=== PATIENT | female | born 1975 | race Native Hawaiian/Other Pacific Islander ===

== ENCOUNTER 2017-06-18 06:41 | Day surgery (SDC) | payer OTHER ==
[2017-06-18 07:15] LABS: SQUAMOUS EPITHIAL 15 /hpf (0-5); URINE BILIRUBIN NEGATIVE (NEGATIVE); URINE BLOOD NEGATIVE (NEGATIVE); URINE CLARITY Hazy (Clear); URINE COLOR Yellow (YELLOW); URINE GLUCOSE (UA) NORMAL (Normal); URINE LEUKOCYTE ESTERASE TRACE Leu/uL (Negative); URINE PROTEIN NEGATIVE (NEGATIVE); URINE UROBILINOGEN NORMAL mg/dL (0.2-1.0)
[2017-06-18 07:16] LABS: HCG,QUALITATIVE URINE POSITIVE (NEGATIVE)
[2017-06-18 07:47] LABS: BASO % 0.2 % (0.0-2.0); EOS # 0.2 K/uL (0.0-0.7); EOS % 4.2 % (0.0-4.0); HEMOGLOBIN 12.6 g/dL (11.0-16.0); LYMPH # 1.5 K/uL (1.0-4.3); LYMPH % 29.4 % (20.0-40.0); MEAN CELL VOLUME 85.1 fL (81.0-99.0); MEAN CORPUSCULAR HEMOGLOBIN 29.2 pg (27.0-31.0); MEAN CORPUSCULAR HGB CONC 34.3 g/dL (33.0-37.0); MEAN PLATELET VOLUME 7.8 fL (7.2-11.7); MONO # 0.4 K/uL (0.0-0.8); NEUT # 2.9 K/uL (1.8-7.0); NEUT % 58.2 % (50.0-75.0); RBC 4.3 Mil/uL (3.80-5.20); RED CELL DISTRIBUTION WIDTH 13.8 % (11.5-14.5)
[2017-06-18 07:53] LABS: PROTHROMBIN TIME 11.7 SECONDS (9.7-12.2)
--- NOTE | 2017-06-18 08:02 | C.PDOC ---
History Of Present Illness 42 year old female presents to ED for evaluation and needs D&C by OB Dr Diane Can. Patient states she had miscarriage 2 weeks ago and has been bleeding since. She had US on Thursday 06/15 and was told to come to ER today. Currently patient reports mild bleeding and denies any pain, dizziness, headache or weakness. Time Seen by Provider: 06/18/17 07:07 Chief Complaint (Nursing): Medical Clearance History Per: Patient History/Exam Limitations: no limitations Current Symptoms Are (Timing): Still Present Severity: Moderate Past Medical History Reviewed: Historical Data, Nursing Documentation, Vital Signs Vital Signs: Last Vital Signs Temp 98.1 F 06/18/17 06:50 Pulse 79 06/18/17 06:50 Resp 18 06/18/17 06:50 BP 131/81 06/18/17 06:50 Pulse Ox 100 06/18/17 10:55 Family History: States: No Known Family Hx - Social History Hx Alcohol Use: No Hx Substance Use: No - Immunization History Hx Tetanus Toxoid Vaccination: No Hx Influenza Vaccination: Yes Hx Pneumococcal Vaccination: No Review Of Systems Constitutional: Negative for: Fever, Chills Gastrointestinal: Negative for: Vomiting, Abdominal Pain Genitourinary: Positive for: Vaginal Bleeding. Negative for: Dysuria, Vaginal Discharge, Pelvic Pain Neurological: Negative for: Weakness, Headache, Dizziness Physical Exam - Physical Exam Appears: Non-toxic, No Acute Distress Skin: Normal Color, Warm, Dry, No Rash Head: Normacephalic Eye(s): bilateral: PERRL Nose: Normal Oral Mucosa: Moist Lips: Normal Appearing Neck: Normal ROM Chest: Symmetrical Cardiovascular: Rhythm Regular, No Murmur Respiratory: Normal Breath Sounds, No Accessory Muscle Use Gastrointestinal/Abdominal: Soft, No Tenderness Extremity: Normal ROM Neurological/Psych: Oriented x3, Normal Speech ED Course And Treatment - Laboratory Results Result Diagrams: 06/18/17 07:39 06/18/17 07:39 Lab Interpretation: No Acute Changes ECG: Interpreted By Me, Viewed By Me ECG Rhythm: Sinus Rhythm ECG Interpretation: No Acute Changes Rate From EC O2 Sat by Pulse Oximetry: 100 (RA) Pulse Ox Interpretation: Normal - CT Scan/US transvaginal Other Rad Studies (CT/US): Read By Radiologist, Radiology Report Reviewed CT/US Interpretation: Accession No. : [id number]. Patient Name / ID : ALO HEALY / [id number]. Exam Date : 06/18/2017 09:38:47 ( Approved ). Study Comment : Sex / Age : F / 42Y. Creator : Asael Kessler MD. Dictator : Asael Kessler MD. Rail Car Repair Carman : Jr. Systems Administrator : Asael Kessler MD. Approver2 : Report Date : 06/18/2017 10:02:49. My Comment : . Pelvic ultrasound. History: Vaginal bleeding. Comparison: None available. Technique: Real-time sonography was performed through the pelvis utilizing transvaginal technique. Findings: Uterus: 7.9 x 4.3 x 5.0 centimeters. Heterogeneous echotexture. Retroverted. Fundal submucosal probable heterogeneous fibroid lesion measuring 2.4 x 1.8 x 2.6 centimeters. Endometrium measures 3.7 millimeters, within normal limits. Small to moderate amount of free fluid within the pelvic cul-de-sac. Right ovary: 3.1 x 1.8 x 2.8 centimeters. Normal flow. Left ovary: 3.6 x 2.1 x 2.9 centimeters. Normal flow. Small hypoechoic cyst/follicle measuring up to 1.4 x 1.3 centimeters. Beta HCG level of 26.8. Clinical correlation. Impression: 1. Retroverted uterus with a heterogeneous echotexture. 2. Small to moderate amount of free fluid noted within the pelvic cul-de-sac. 3. Probable heterogeneous fibroid lesion in the fundal submucosal region of the uterus measuring up to 2.6 centimeters. Interval followup ultrasound is recommended if clinically indicated. Medical Decision Making Medical Decision Making: Patient with 2 weeks of vaginal bleeding s.p spontaneous . [address] Diane Can, [facility] and [facility]. Orders placed for labs and US. Prior records reviewed US shows endometrium measures 10mm in diameter. 2.4 cm intramural anterior fundal fibroid and 2.1 cm simple cyst in the left ovary. 1000 US shows Small to moderate amount of free fluid noted within the pelvic cul -de-sac. Probable heterogeneous fibroid lesion in the fundal submucosal region of the uterus measuring up to 2.[address] Diane Can who is in OR performing 1055 Dr Diane Can calls back ED and will come to evaluate patient 1105 Dr Diane Can states admit to [facility] and will take patient to OR for D&C Disposition - Disposition Disposition: HOSPITALIZED Disposition Time: 11:10 Condition: STABLE - POA Present On Arrival: None - Clinical Impression Clinical Impression: Abnormal vaginal bleeding - Scribe Statement The provider has reviewed the documentation as recorded by the Scribe (Farshad Dewey) All medical record entries made by the Scribe were at my direction and personally dictated by me. I have reviewed the chart and agree that the record accurately reflects my personal performance of the history, physical exam, medical decision making, and the department course for this patient. I have also personally directed, reviewed, and agree with the discharge instructions and disposition. Decision To Admit - Pt Status Changed To: Hospital Disposition Of: [facility]- Endo,OR,Cath,IR - . Bed Request Type: Same Day Surgery Admitting Physician: Margaret Can Patient Diagnosis: Abnormal vaginal bleeding
[2017-06-18 08:15] LABS: ALB/GLOB RATIO 1.2 (1.0-2.1); ALBUMIN 4.3 g/dL (3.5-5.0); ALT/SGPT 24 U/L (9-52); AST/SGOT 32 U/L (14-36); BLOOD UREA NITROGEN 10 mg/dL (7-17); GFR AFRICAN-AMERICAN > 60; GFR NON-AFRICAN AMERICAN > 60
--- NOTE | 2017-06-18 10:04 | US ---
Pelvic ultrasound History: Vaginal bleeding. Comparison: None available. Technique: Real-time sonography was performed through the pelvis utilizing transvaginal technique. Findings: Uterus: 7.9 x 4.3 x 5.0 centimeters. Heterogeneous echotexture. Retroverted. Fundal submucosal probable heterogeneous fibroid lesion measuring 2.4 x 1.8 x 2.6 centimeters. Endometrium measures 3.7 millimeters, within normal limits. Small to moderate amount of free fluid within the pelvic cul-de-sac. Right ovary: 3.1 x 1.8 x 2.8 centimeters. Normal flow. Left ovary: 3.6 x 2.1 x 2.9 centimeters. Normal flow. Small hypoechoic cyst/follicle measuring up to 1.4 x 1.3 centimeters. Beta HCG level of 26.8. Clinical correlation. Impression: 1. Retroverted uterus with a heterogeneous echotexture. 2. Small to moderate amount of free fluid noted within the pelvic cul-de-sac. 3. Probable heterogeneous fibroid lesion in the fundal submucosal region of the uterus measuring up to 2.6 centimeters. Interval followup ultrasound is recommended if clinically indicated.
--- NOTE | 2017-06-18 11:25 | CP.PCM.HP ---
History of Present Illness - History of Present Illness History of Present Illness: 42 y/o with incomplete with prlonged bleeidgn x 2-3 weeks. Pt opted for conservative managmetn intiallly with trending of beta hcg adn us however last week beta increased divina was sadivesd on medical vs surgical managmnet. pt had heavy prolonteg bleedign and underenwt medical mangment with contined bleeing. Pt preorts her bleedign is on and offs, passing large clots, not using more than 2 ads/ hour but rpeorts feelign tired and not able to focus for long period of time due ot frequent pad changes. pt cassy any dizzyness, cp , sob, boewl ro bladder copliants. UPon recent evlauatin pt had beta trendign dwon to 100 on and today in ER 26 but still reprots heavy bleeding. pt had an US signiciant for 2.6cm submcuosal myoma. Pt also reports pain from crampign that comes adn goes and varies intienstiy adn severity currently 08/28, soemtiesm alelviated with otc pain medicaiton. OB: NSNVD x [address] MIXER OPERATOR: dneis hx of merrick castelan, sti, ovarian cyst, +firoids PMHY: Dneis PSH: denies MEDS: none NKDA SHX: negative etoh/tobacc/drugs Present on Admission - Present on Admission Any Indicators Present on Admission: No Review of Systems - Review of Systems Systems not reviewed;Unavailable: Acuity of Condition - Constitutional Constitutional: As Per HPI, Fatigue - Cardiovascular Cardiovascular: absent: As Per HPI, Acrocyanosis, Chest Pain, Chest Pain at Rest , Chest Pain with Activity, Claudication, Diaphoresis, Dyspnea, Dyspnea on Exertion, Edema, Irregular Heart Rhythm, Pain Radiating to Arm/Neck/Jaw, Leg Edema, Leg Ulcers, Lightheadedness, Orthopnea, Palpitations, Paroxysmal Nocturnal Dyspnea, Pedal Edema, Radiating Pain, Rapid Heart Rate, Slow Heart Rate, Syncope, Other - Respiratory Respiratory: absent: As Per HPI, Cough, Dyspnea, Hemoptysis, Dyspnea on Exertion , Wheezing, Snoring, Stridor, Pain on Inspiration, Chest Congestion, Excessive Mucous Production, Change in Mucous Color, Pain with Coughing, Other - Gastrointestinal Gastrointestinal: Abdominal Pain. absent: As Per HPI, Belching, Bloating, Change in Bowel Habits, Change in Stool Character, Coffee Ground Emesis, Constipation, Cramping, Diarrhea, Dyspepsia, Dysphagia, Early Satiety, Excessive Flatus, Fecal Incontinence, Heartburn, Hematemesis, Hematochezia, Loose Stools, Melena, Nausea, Odynophagia, Temesmus, Vomiting, Other - Genitourinary Genitourinary: absent: As Per HPI, Change in Urinary Stream, Difficulty Urinating, Dysuria, Flank Pain, Hematuria, Pyuria, Nocturia, Urinary Incontinence, Urinary Frequency, Urinary Hesitance, Urinary Urgency, Voiding Freq/Small Amts, Freq UTI, Hx Renal/Bladder Calculi, Hx /Renal Surgery, Bladder Distension, Other - Reproductive: Female Reproductive:Female: As Per HPI, Cycle Variable, Heavy Menses - Menstruation Menstruation: As Per HPI - Musculoskeletal Musculoskeletal: As Per HPI - Integumentary Integumentary: absent: As Per HPI, Acne, Alopecia, Bleeding Lesions, Change in Hair, Change in Nails, Change in Pigmentation, Changing Lesions, Dry Skin, Erythema, Furuncle, Hirsutism, Lesions, New Lesions, Non-Healing Lesions, Photosensitivity, Pruritus, Rash, Skin Pain, Skin Ulcer, Sores, Striae, Swelling , Unusual Bruising, Wounds, Jaundice, Other - Neurological Neurological: absent: As Per HPI, Abnormal Gait, Abnormal Hearing, Abnormal Movements, Abnormal Speech, Behavioral Changes, Burning Sensations, Confusion, Convulsions, Disequilibrium, Dizziness, Numbness, Focal Weakness, Frequent Falls , Headaches, Lack of Coordination, Loss of Vision, Memory Loss, Paresthesias, Radicular Pain, Restless Legs, Sensory Deficit, Syncope, Tingling, Tremor, Vertigo, Weakness, Other Visual Disturbances, Other - Psychiatric Psychiatric: absent: As Per HPI, Abnormal Sleep Pattern, Anhedonia, Anxiety, Auditory Hallucinations, Behavioral Changes, Change in Appetite, Change in Libido, Confusion, Depression, Difficulty Concentrating, Hallucinations, Homicidal Ideation, Hopelessness, Irritability, Memory Loss, Mood Swings, Panic Attacks, Paranoia, Suicidal Ideation, Visual Hallucinations, Tactile Hallucinations, Other - Hematologic/Lymphatic Hematologic: absent: As Per HPI, Easy Bleeding, Easy Bruising, Lymphadenopathy, Other Past Patient History - Past Social History Smoking Status: Never Smoked Chewing Tobacco Use: No Cigar Use: No - CARDIAC Hx Cardiac Disorders: No - PULMONARY Hx Respiratory Disorders: No - NEUROLOGICAL Hx Neurological Disorder: No - HEENT Hx HEENT Problems: No - RENAL Hx Chronic Kidney Disease: No - ENDOCRINE/METABOLIC Hx Endocrine Disorders: No - HEMATOLOGICAL/ONCOLOGICAL Hx Blood Disorders: No - INTEGUMENTARY Hx Dermatological Problems: No - MUSCULOSKELETAL/RHEUMATOLOGICAL Hx Musculoskeletal Disorders: No - GASTROINTESTINAL Hx Gastrointestinal Disorders: No - GENITOURINARY/GYNECOLOGICAL Hx Genitourinary Disorders: No - PSYCHIATRIC Hx Substance Use: No - SURGICAL HISTORY Hx Surgeries: No - ANESTHESIA Hx Anesthesia: No Meds Allergies/Adverse Reactions: Allergies Allergy/AdvReac Type Severity Reaction Status Date / Time No Known Allergies Allergy Verified 06/18/17 06:53 Physical Exam - Constitutional Appears: Well, No Acute Distress - Head Exam Head Exam: ATRAUMATIC, NORMAL INSPECTION - Eye Exam Eye Exam: Normal appearance, PERRL Pupil Exam: NORMAL ACCOMODATION - ENT Exam ENT Exam: Mucous Membranes Moist, Normal Exam - Respiratory Exam Respiratory Exam: Clear to Auscultation Bilateral, NORMAL BREATHING PATTERN - Cardiovascular Exam Cardiovascular Exam: REGULAR RHYTHM, +S1, +S2 - GI/Abdominal Exam GI & Abdominal Exam: Normal Bowel Sounds, Soft, Tenderness Additional comments: no guarding, no reboudn tendnere, no rigidty - Exam Additional comments: Extneral gentialia; no gross abnormlaites Vagina: dark red blood, small clots cervix; non tende rUteurs; non tender 10 weeks adnexa; non tender b/l, no mona appacited b/l anus/peirenum: gorslly nromal Results - Vital Signs Recent Vital Signs: Last Vital Signs Temp 98.1 F 06/18/17 06:50 Pulse 79 06/18/17 06:50 Resp 18 06/18/17 06:50 BP 131/81 06/18/17 06:50 Pulse Ox 100 06/18/17 11:11 - Labs Result Diagrams: 06/18/17 07:39 06/18/17 07:39 Labs: Laboratory Results - last 24 hr 06/18/17 06/18/17 06/18/17 06:55 07:39 07:39 WBC 5.0 RBC 4.30 Hgb 12.6 Hct 36.6 MCV 85.1 MCH 29.2 MCHC 34.3 RDW 13.8 Plt Count 276 MPV 7.8 Neut % (Auto) 58.2 Lymph % (Auto) 29.4 [place] % (Auto) 8.0 Eos % (Auto) 4.2 H Baso % (Auto) 0.2 Neut # (Auto) 2.9 Lymph # (Auto) 1.5 [place] # (Auto) 0.4 Eos # (Auto) 0.2 Baso # (Auto) 0.0 PT 11.7 INR 1.0 APTT 29 Sodium Potassium Chloride Carbon Dioxide Anion Gap BUN Creatinine Est GFR ( Amer) Est GFR (Non-Af Amer) Random Glucose Calcium Total Bilirubin AST ALT Alkaline Phosphatase Total Protein Albumin Globulin Albumin/Globulin Ratio Beta HCG, Quant Urine Color Yellow Urine Clarity Hazy Urine pH 5.0 Ur Specific [place] 1.021 Urine Protein Negative Urine Glucose (UA) Normal Urine Ketones Negative Urine Blood Negative Urine Nitrate Negative Urine Bilirubin Negative Urine Urobilinogen Normal Ur Leukocyte Esterase Trace Urine WBC (Auto) 2 Urine RBC (Auto) 1 Ur Squamous Epith Cells 15 H Urine HCG, Qual Positive 06/18/17 07:39 WBC RBC Hgb Hct MCV MCH MCHC RDW Plt Count MPV Neut % (Auto) Lymph % (Auto) [place] % (Auto) Eos % (Auto) Baso % (Auto) Neut # (Auto) Lymph # (Auto) [place] # (Auto) Eos # (Auto) Baso # (Auto) PT INR APTT Sodium 143 Potassium 4.1 Chloride 103 Carbon Dioxide 26 Anion Gap 17 BUN 10 Creatinine 0.7 Est GFR ( Amer) > 60 Est GFR (Non-Af Amer) > 60 Random Glucose 100 Calcium 9.0 Total Bilirubin 0.8 AST 32 ALT 24 Alkaline Phosphatase 33 L Total Protein 8.1 Albumin 4.3 Globulin 3.8 Albumin/Globulin Ratio 1.2 Beta HCG, Quant 26.80 Urine Color Urine Clarity Urine pH Ur Specific [place] Urine Protein Urine Glucose (UA) Urine Ketones Urine Blood Urine Nitrate Urine Bilirubin Urine Urobilinogen Ur Leukocyte Esterase Urine WBC (Auto) Urine RBC (Auto) Ur Squamous Epith Cells Urine HCG, Qual - Imaging and Cardiology US - abdomen Status: Report reviewed by me Assessment & Plan (1) Abnormal vaginal bleeding Assessment and Plan: 42 y/o s/p complete with abnormla uterine bleeding likey secondary to submucosal myoma -US resport dw patietn and partern in detail in regards to expectnat manganet, medical mangmetn and sruugcak mangment due ot prolonged bleeidgn pt opted for surigcla mangmetn r/b/a/i not ltmied to bleedinginfection uerien peroirmatin, fluid [id number] wpaiet -likely complete abortin as beta hcg now 26 -admit to r d intern -npo, ivfr -preop labs -or/anethis aware for hysterosopcia myoemcotmy dxcs Status: Acute
[2017-06-18] MEDS ORDERED: Midazolam 2 MG/2 ML VIAL ONE (12:28)
[2017-06-18] MEDS ORDERED: Propofol 10 mg/ml Inj (20 ML) ONE (12:29)
[2017-06-18] MEDS ORDERED: Silver Nitrate Topical - Stick ONE ×2 (13:00→13:30)
[2017-06-18] MEDS ORDERED: HYDROmorphone 0.5 mg/0.5 ml ISec IVP PRN (13:13)
--- NOTE | 2017-06-18 13:33 | PCM.SURG1 ---
Surgeon's Initial Post Op Note - Surgeon's Notes Surgeon: Margaret moraes MD Transportation Museum Helper: none Type of Anesthesia: General LMA Pre-Operative Diagnosis: abnoraml uterien bleeding, submocsomaly Operative Findings: 8-10 wek sizes utuers, submucosal myoma bilateal ostai visaluzed Post-Operative Diagnosis: same as above Operation Performed: Hysteroscopic myomecotmy, dilation and currettage Specimen/Specimens Removed: submucosal myoma, endocervial currettings, neodmetiral currettings Estimated Blood Loss: EBL {In ML}: 20 Blood Products Given: N/A Drains Used: No Drains Post-Op Condition: Good Date of Surgery/Procedure: 06/18/17 Time of Surgery/Procedure: 12:00
--- NOTE | 2017-06-18 13:39 | CP.PCM.DIS ---
Provider - Provider Attending physician: Margaret Can MD Time Spent in preparation of Discharge (in minutes): 20 Diagnosis - Discharge Diagnosis (1) Abnormal vaginal bleeding Status: Acute Priority: Low Hospital Course - Lab Results Lab Results: Most Recent Lab Values WBC 5.0 K/uL (4.8-10.8) 06/18/17 07:39 RBC 4.30 Mil/uL (3.80-5.20) 06/18/17 07:39 Hgb 12.6 g/dL (11.0-16.0) 06/18/17 07:39 Hct 36.6 % (34.0-47.0) 06/18/17 07:39 MCV 85.1 fL (81.0-99.0) 06/18/17 07:39 MCH 29.2 pg (27.0-31.0) 06/18/17 07:39 MCHC 34.3 g/dL (33.0-37.0) 06/18/17 07:39 RDW 13.8 % (11.5-14.5) 06/18/17 07:39 Plt Count 276 K/uL (130-400) 06/18/17 07:39 MPV 7.8 fL (7.2-11.7) 06/18/17 07:39 Neut % (Auto) 58.2 % (50.0-75.0) 06/18/17 07:39 Lymph % (Auto) 29.4 % (20.0-40.0) 06/18/17 07:39 [place] % (Auto) 8.0 % (0.0-10.0) 06/18/17 07:39 Eos % (Auto) 4.2 % (0.0-4.0) H 06/18/17 07:39 Baso % (Auto) 0.2 % (0.0-2.0) 06/18/17 07:39 Neut # (Auto) 2.9 K/uL (1.8-7.0) 06/18/17 07:39 Lymph # (Auto) 1.5 K/uL (1.0-4.3) 06/18/17 07:39 [place] # (Auto) 0.4 K/uL (0.0-0.8) 06/18/17 07:39 Eos # (Auto) 0.2 K/uL (0.0-0.7) 06/18/17 07:39 Baso # (Auto) 0.0 K/uL (0.0-0.2) 06/18/17 07:39 PT 11.7 SECONDS (9.7-12.2) 06/18/17 07:39 INR 1.0 06/18/17 07:39 APTT 29 SECONDS (21-34) 06/18/17 07:39 Sodium 143 mmol/L (132-148) 06/18/17 07:39 Potassium 4.1 mmol/L (3.6-5.2) 06/18/17 07:39 Chloride 103 mmol/L (98-107) 06/18/17 07:39 Carbon Dioxide 26 mmol/L (22-30) 06/18/17 07:39 Anion Gap 17 (10-20) 06/18/17 07:39 BUN 10 mg/dL (7-17) 06/18/17 07:39 Creatinine 0.7 mg/dL (0.7-1.2) 06/18/17 07:39 Est GFR ( Amer) > 60 06/18/17 07:39 Est GFR (Non-Af Amer) > 60 06/18/17 07:39 Random Glucose 100 mg/dL (65-105) 06/18/17 07:39 Calcium 9.0 mg/dl (8.6-10.4) 06/18/17 07:39 Total Bilirubin 0.8 mg/dL (0.2-1.3) 06/18/17 07:39 AST 32 U/L (14-36) 06/18/17 07:39 ALT 24 U/L (9-52) 06/18/17 07:39 Alkaline Phosphatase 33 U/L (38-126) L 06/18/17 07:39 Total Protein 8.1 g/dL (6.3-8.3) 06/18/17 07:39 Albumin 4.3 g/dL (3.5-5.0) 06/18/17 07:39 Globulin 3.8 gm/dL (2.2-3.9) 06/18/17 07:39 Albumin/Globulin Ratio 1.2 (1.0-2.1) 06/18/17 07:39 Beta HCG, Quant 26.80 mIU/ML 06/18/17 07:39 Urine Color Yellow (YELLOW) 06/18/17 06:55 Urine Clarity Hazy (Clear) 06/18/17 06:55 Urine pH 5.0 (5.0-8.0) 06/18/17 06:55 Ur Specific [place] 1.021 (1.003-1.030) 06/18/17 06:55 Urine Protein Negative mg/dL (NEGATIVE) 06/18/17 06:55 Urine Glucose (UA) Normal mg/dL (Normal) 06/18/17 06:55 Urine Ketones Negative mg/dL (NEGATIVE) 06/18/17 06:55 Urine Blood Negative (NEGATIVE) 06/18/17 06:55 Urine Nitrate Negative (NEGATIVE) 06/18/17 06:55 Urine Bilirubin Negative (NEGATIVE) 06/18/17 06:55 Urine Urobilinogen Normal mg/dL (0.2-1.0) 06/18/17 06:55 Ur Leukocyte Esterase Trace Caleb/uL (Negative) 06/18/17 06:55 Urine WBC (Auto) 2 /hpf (0-5) 06/18/17 06:55 Urine RBC (Auto) 1 /hpf (0-3) 06/18/17 06:55 Ur Squamous Epith Cells 15 /hpf (0-5) H 06/18/17 06:55 Urine HCG, Qual Positive (NEGATIVE) 06/18/17 06:55 - Hospital Course Hospital Course: 42 y/o with incomplete aboriton with vaginal bleeding x 3 weeks and preseted to er complaing of vb, beta hcg 26 howeer 2cm submucosal myoma r/ba//i hystersopcim myomecotmy dw patietn tolerated procedure ewll, no complcations Discharge Exam - Head Exam Head Exam: NORMAL INSPECTION - Respiratory Exam Respiratory Exam: Clear to PA & Lateral, UNREMARKABLE - Cardiovascular Exam Cardiovascular Exam: REGULAR RHYTHM, +S1, +S2 - GI/Abdominal Exam GI & Abdominal Exam: Soft, Tenderness - Rectal Exam Rectal Exam: NORMAL INSPECTION - Exam Additional comments: see H+P - Back Exam Back exam: absent: CVA tenderness (L), CVA tenderness (R), FULL ROM, muscle spasm, NORMAL INSPECTION, paraspinal tenderness, rash noted, tenderness, vertebral tenderness - Neurological Exam Neurological exam: CN II-XII Intact Discharge Plan - Follow Up Plan Condition: STABLE Disposition: HOME/ ROUTINE
[2017-06-18 16:17] VITALS: RESP 16
[2017-06-18 16:27] VITALS: BP 117/74; PULSE 76; TEMP 98.1; O2SAT 99
--- NOTE | 2017-06-19 06:58 | OP ---
PROCEDURE DATE: 06/18/2017 The patient is a 42-year-old G2, P1 that initially had an abnormal intrauterine with abnormal increase in beta hCG that underwent spontaneous vaginal bleeding and was undergoing spontaneous and initially opted for medical management. The patient was then closely monitored and observed outpatient, with repeat beta-hCGs that were initially trending down and then up. The patient was then with continued bleeding for more than 2 weeks and counseled again on expected versus medical verses surgical management. The patient opted for medical management, and at that point, the beta hCG was noted to be increasing, and the patient has continued to bleeding that was varying in intensity in amount with clots and cramping pain. The patient was then advised and continued to have bleeding for a surgical management in which she arrived to the ER on 06/18 complaining of vaginal bleeding persistent with cramping pain. The patient then had a beta hCG that was 26. However, on ultrasound was noted to have 2.6 cm submucosal myoma. The risks, benefits, alternatives, and indications of hysteroscopy and myomectomy discussed with the patient. The patent consented to procedure. SURGEON: Margaret Can MD DERRICK ENGINEER: None. TYPE OF ANESTHESIA: General LMA. PREOPERATIVE DIAGNOSES: Submucosal myoma and abnormal uterine bleeding. POSTOPERATIVE DIAGNOSES: Submucosal myoma and abnormal uterine bleeding. OPERATIVE FINDINGS: A 8 to 10 weeks size anteverted uterus. No adnexal masses, bilateral ostia visualized, fundal myoma noted, 1 cm. No other gross masses noted. OPERATION PERFORMED: Hysteroscopy, myomectomy, dilation and curettage. SPECIMEN REMOVED: Submucosal myoma, endocervical curettings, endometrial curettings. ESTIMATED BLOOD LOSS: 20 mL. BLOOD PRODUCTS: None. COMPLICATIONS: None. DESCRIPTION OF PROCEDURE: The patient was taken to the operating room where she was given general anesthesia. Once it was found to be adequate, she was positioned on the operating table in a dorsal supine position with legs supported using stirrups. The patient was then prepped and draped in the usual sterile fashion. A time-out confirmed correct patient and correct procedure. Bimanual exam was performed with the above-mentioned findings. A red rubber catheter was then inserted into the urethra to drain the bladder. Following this, a Giraldo retractor was placed in the anterior and posterior fornix of the vagina. The cervix was adequately visualized and single-tooth tenaculum was placed in the anterior lip of the cervix. Endocervical curettings were obtained with a [facility] cure[facility] and sent to Pathology on [facility]. The uterus was then carefully sounded to 8 cm, and cervix was sequentially dilated to allow for introduction of the 5-mm hysteroscope under direct visualization using normal saline as the distention media. A myoma was then noted along the fundal portion within the cavity. A MyoSure device was then inserted under direct visualization, and the masses were then carefully resected. The MyoSure device was then removed, and a gentle curettage was done at 360 degrees until gritty texture was noted. A good hemostasis noted. All instruments removed. There was good hemostasis at the tenaculum puncture site. At the end of the procedure, all needle, sponge, and instrument counts were noted and correct x2. The patient tolerated the procedure well and was transferred to the recovery room in stable condition. Margaret Can MD
--- NOTE | 2017-06-19 15:20 | CARD ---
APPROVED REPORT EKG Measurement Heart [id number] <Conclusion> Normal sinus rhythm Normal ECG
== END 2017-06-18 16:00 | disposition home or self-care (01) ==
LOC: C.ER 06:41 → C.SDS 11:21
PROVIDERS: ATTEND Obstetrics & Gynecology
DX: D25.0 Submucous leiomyoma of uterus (principal); N85.4 Malposition of uterus; N93.8 Other specified abnormal uterine and vaginal bleeding
CPT/HCPCS: 58561; 76830; 80053; 81001; 84702; 84703; 85025; 85610; 85730; 88305; 93005; 99285; J2250; J2704; J3010